=== PATIENT | female | born 1950 | race Caucasian/White ===

== ENCOUNTER → 2018-12-27 | Outpatient (CLI) | payer OTHER | LOC: CAT 12:00 | DX: Z13.6 Encounter for screening for cardiovascular disorders (principal); E78.00 Pure hypercholesterolemia, unspecified; I25.10 Atherosclerotic heart disease of native coronary artery without angina pectoris ==

== ENCOUNTER 2019-02-12 08:41 | Observation (INO) | payer OTHER, MEDICARE ==
[2019-02-12] VITALS (10 sets, daily range): BP systolic 132–147; BP diastolic 57–69
[~2019-02-12] VITALS: Ht 167.6 cm; Wt 85.5 kg
[2019-02-12] MEDS ORDERED: LIPITOR80 MG PO (09:17)
[2019-02-12] MEDS ORDERED: PLAVIX 75 MG TA75 MG PO (09:17)
[2019-02-12] MEDS ORDERED: LOTENSIN40 MG PO (09:17)
[2019-02-12] MEDS ORDERED: METFORMIN HCL500 M3 PO (09:18)
[2019-02-12] MEDS ORDERED: TOPROL XL50 MG PO (09:19)
--- NOTE | 2019-02-12 12:33 | EKG ---
[address] [address] ELECTROCARDIOGRAM REPORT Name: YUKI MALDONADO Room #: 160-1 [facility].#: [id number] Admission: 02/12/19 Attend Phys: Kavon Londono Discharge: Date of : 50 Report #: [id number] THIS REPORT FOR: //name// [facility] Test Date: 2019-02-12 Test Time: 09:17:01 Pat Name: YUKI MALDONADO Department: Room: 160 Gender: F [employer]: Michele SOLOMON : 1950 Requested By: Kavon Londono Order Number: [id number] MD: Tomy Subramanian Measurements Intervals [place] Rate: 67 P: 65 NC: 174 QRS: 22 QRSD: 86 T: 36 QT: 409 QTc: 432 Interpretive Statements Sinus rhythm No previous ECG available for comparison Electronically Signed On 02-12-2019 12:32:55 [employer] by Tomy Subramanian [email or web address] <ELECTRONICALLY SIGNED> By: Tomy Subramanian MD 02/12/19 1232 0917 6 Tomy Subramanian MD /ULICES
--- NOTE | 2019-02-12 17:50 | NUR ---
PT ADMITED FROM PHONE TRIAGE SPECIALIST. ADMISSION HX AND ASSESSMENT COMPLETED. VSS. NO HEMATOMA NOTED ON THE RIGHT AND LEFT GROIN INCISION. RIGHT GROIN INCISION HAS BRUISING. PRN PAIN MED GIVEN WITH PARTIAL RELIEF. POST OP INSTRUCTIONS GIVEN TO PT. PT VERBERLISED UNDERSTANDING.
[2019-02-13 00:03] VITALS: BP 122/60
--- NOTE | 2019-02-13 03:00 | NUR ---
ASSUMED CARE OF PATIENT AT 1900. VSS, AFEBRILE. C/O BACK PAIN, PAIN MEDS GIVEN ORDERED. SOME OF HER PAIN IS CHRONIC. NARCISO BUCIO'Sallie. UP TO BATHROOM TO VOID. BRUISING ON RIGHT GROIN SITE, MARKED TO MONITOR. PROGRESSING TOWARDS POC GOALS.
[2019-02-13 05:10] VITALS: BP 159/78
[2019-02-13 05:54] LABS: HEMATOCRIT 36.1 % (37.0-47.0); HEMOGLOBIN 12.1 gm/dL (12.0-15.0); MCH 30.7 pg (26.0-34.0); MCHC 33.6 g/dL (28.0-37.0); MCV 91.4 fL (80.0-100.0); RBC 3.95 mil/uL (4.20-5.00); RDW 13.4 % (10.5-14.5); WBC 9.6 thou/uL (4.0-11.0)
[2019-02-13 06:08] LABS: CALCIUM 9.1 mg/dL (8.5-10.1); CREATININE 0.6 mg/dL (0.6-1.0); POTASSIUM 3.6 mmol/L (3.5-5.1)
[2019-02-13 08:00] VITALS: BP 164/68
[2019-02-13] MEDS ORDERED: ASPIR 8181 MG PO (08:44)
[2019-02-13] MEDS ORDERED: CRESTOR40 MG PO (08:44)
[2019-02-13 12:00] VITALS: BP 151/72
[2019-02-13 15:45] VITALS: BP 151/72
--- NOTE | 2019-02-13 15:55 | NUR ---
ASSESSMENT CHARTED. PT ALERT AND ORIENTED. VSS. DENIED HAVING PAIN OR DISCOMFORT. SEEN BY DR. OSULLIVAN. ORDERS GIVEN TO DISCHARGE PT TO HOME. DISCHARGE INSTRUCTIONS GIVEN TO PT. PT VERBERLISED UNDERSTANDING.
--- NOTE | 2019-03-04 00:28 | CATHLAB ---
[facility] [place] [address] INVASIVE PROCEDURE REPORT Name: YUKI MALDONADO Jimmie Room #: 215-P [facility]#: [id number] Admission: 02/12/19 Attend Phys: Kavon Caceres Discharge: 02/13/19 Date of : 50 Report #: [id number] THIS REPORT FOR: //name// APPROVED REPORT Study performed: 02/12/2019 09:01:29 Patient Details Patient Status: Out-Patient Room #: The patient is a 68 year-old female Event Personnel Kavon Londono Audit Intern, Funmilayo Johnson RN RN, Eleonora Green RTR Scrub, Eleonora Green RTR Scrub, Awilda Vergara RTR Scrub, Emerson Esquivel, Mook Franco buckle attaching machine operator Performed Left Heart Cath w/or w/o Coronaries [id number] [facility], supervision of conscious sedation Indication Positive stress test, Chest pain Procedure Narrative The Right Groin^ was infiltrated with 1% Lidocaine subcutaneous anesthesia. A PINNACLE 4FR Sheath #[id number] sheath was inserted into the . Coronary angiography was performed using coronary diagnostic catheters. The right coronary system was accessed and visualized with a JR4 catheter. The left coronary system was accessed and visualized with a 4FR JL 5.0 #[id number] catheter. The left ventricle was accessed and visualized with a PIGTAIL catheter. Left ventricular/Aortic Valve gradient assessed via catheter pullback. Intraoperative Conscious Sedation Sedation start time: 9.58 Case end Time: 11.12 Versed 2 mg Fluoro Time: 10.00 minutes Dose: DAP 32262.00 cGycm2 1882 mGy Contrast Type and Amount: Omnipaque 90 ml Coronary Angiography The patient's coronary anatomy is right dominant. [facility] [address] [place] [address] INVASIVE PROCEDURE REPORT Name: JOELYUKI Jimmie Room #: 215-P [facility].#: [id number] Admission: 02/12/19 Attend Phys: Kavon Caceres Discharge: 02/13/19 Date of : 50 Report #: [id number] Diagnostic Cath Left Main Short and almost nonexistent bifurcates left anterior descending left circumflex free of high-grade disease LAD Moderate caliber type III vessel which courses in the anterior interventricular sulcus. In the proximal portion prior to the origin of first diagonal branch is a narrowing which appears to be approximately 50-60%. The vessel then gives rise to first diagonal branches are small to moderate in size with luminal irregularities but no high-grade lesions. The LAD continues in the sulcus giving rise to septal and diagonal branches of smaller diameter with luminal irregularities until it tapers and bifurcates is a small vessel in the left ventricular apical region. Diagonal 1 Small to moderate caliber vessel which has a proximal narrowing which is less than 50% the vessel continues on with several branches and luminal irregularities noted. Circumflex 100 caliber vessel which courses in the AV groove gives rise to a moderate first marginal branch and then terminates small-caliber vessel in the posterior aspect of the left ventricle. The proximal portion of the circumflex is luminal irregularities of under 30%. It then courses on the first marginal branch is moderate in caliber proceeds tapers rapidly with her appears to be a 75 or so percent lesion in the branch distal third. This vessel is less than 1 mm diameter OM1 Rapidly tapering moderate caliber vessel which has a 70% lesion in its distal third and luminal irregularities throughout its course Right Coronary Caliber dominant vessel which courses in the AV groove to the crux of the heart. There is mild luminal irregularities noted throughout the course. The cardiovascular heart a moderate caliber posterior descending artery arises it tapers at its midpoint 2 string-like vessels but no high-grade lesions prior to this. The distal right coronary artery is a small-caliber vessel with diffuse disease Left Ventriculography Left Ventriculography was not performed. Hemodynamics The aortic pressure is 193/93 mmHg with a mean of 104 mmHg. The left ventricular pressure is 198/15 mmHg with a mean of mmHg. The left ventricular end diastolic pressure is 27 mmHg. There was no gradient across the aortic valve upon pullback. Pullback from the left ventricle to the aorta revealed no gradient across the aortic valve. [facility] [address] [place] [address] INVASIVE PROCEDURE REPORT Name: YUKI MALDONADO Room #: 215-P [facility] IN M.REsther#: [id number] Admission: 02/12/19 Attend Phys: Kavon Ccaeres Discharge: 02/13/19 Date of : 50 Report #: [id number] Conclusion 1. Coronary artery disease multivessel moderate 2. Abnormal hemodynamics with elevated liver ventricular end-diastolic pressures Recommendations Cardiac Risk Reduction Program Aggressive Medical Therapy <ELECTRONICALLY SIGNED> By: Kavon Londono MD 03/04/1926 Kavon Londono MD /INF
== END 2019-02-13 15:56 | disposition home or self-care (01) ==
LOC: CATH 08:41 → 2N 11:56 → TBACV 11:56 → CATH 12:06 → 2N 15:42 → ENTRNSPT 02-13 15:46 → EDTRNSPTSTS 02-13 15:47 → 2N 02-13 15:56
PROVIDERS: Nuclear Medicine Nuclear Cardiology; ADMIT Internal Medicine
DX: I25.10 Atherosclerotic heart disease of native coronary artery without angina pectoris (principal); I70.213 Atherosclerosis of native arteries of extremities with intermittent claudication, bilateral legs; I10 Essential (primary) hypertension; E11.9 Type 2 diabetes mellitus without complications; F17.210 Nicotine dependence, cigarettes, uncomplicated; Z79.84 Long term (current) use of oral hypoglycemic drugs; Z79.82 Long term (current) use of aspirin; Z79.899 Other long term (current) drug therapy